=== PATIENT | female | born 1990 | race Caucasian/White ===

== ENCOUNTER 2017-03-17 16:47 | Emergency (ER) | payer MEDICAID, OTHER ==
[~2017-03-17] VITALS: Ht 170.2 cm; Wt 64.0 kg
[2017-03-17 16:55] VITALS: BP 113/71
== END 2017-03-17 17:17 | disposition home or self-care (01) ==
LOC: ED 17:11
DX: O26.892 Other specified pregnancy related conditions, second trimester (principal); Z3A.15 15 weeks gestation of pregnancy; Z00.00 Encounter for general adult medical examination without abnormal findings; F11.90 Opioid use, unspecified, uncomplicated; F15.90 Other stimulant use, unspecified, uncomplicated
CPT/HCPCS: 99283